=== PATIENT | male | born 1960 | race African-American/Black ===

== ENCOUNTER 2018-01-11 16:05 | Emergency (ER) | payer OTHER ==
[~2018-01-11] VITALS: Ht 25.4 cm; Wt 109.0 kg
[2018-01-11 16:42] VITALS: BP 143/91
== END 2018-01-11 16:45 | disposition home or self-care (01) | DRG 605 ==
LOC: ED 16:05
PROC: 0HQLXZZ Repair Left Lower Leg Skin, External Approach (ICD-10-PCS; principal; 2018-01-11)
DX: S81.812A Laceration without foreign body, left lower leg, initial encounter (principal); I10 Essential (primary) hypertension; E11.9 Type 2 diabetes mellitus without complications; E07.9 Disorder of thyroid, unspecified; W22.8XXA Striking against or struck by other objects, initial encounter; Y93.89 Activity, other specified

== ENCOUNTER 2018-01-21 08:04 | Emergency (ER) | payer OTHER ==
[~2018-01-21] VITALS: Ht 177.8 cm; Wt 106.8 kg
[2018-01-21] MEDS ORDERED: LISINOPRIL20 MG PO (08:14)
[2018-01-21] MEDS ORDERED: JANUVIA100 MG PO (08:14)
[2018-01-21] MEDS ORDERED: OMEPRAZOLE10 MG PO (08:15)
[2018-01-21] MEDS ORDERED: GABAPENTIN100 MG PO ×2 (08:15→08:16)
[2018-01-21 08:23] VITALS: BP 147/86
== END 2018-01-21 08:25 | disposition home or self-care (01) | DRG 950 ==
LOC: ED 08:04
DX: S81.812D Laceration without foreign body, left lower leg, subsequent encounter (principal)

== ENCOUNTER 2018-01-25 17:31 | Emergency (ER) | payer MEDICAID ==
[~2018-01-25] VITALS: Ht 177.8 cm; Wt 109.0 kg
[~2018-01-25 17:31] MED LIST: GABAPENTIN100 MG PO; JANUVIA100 MG PO; LISINOPRIL20 MG PO; OMEPRAZOLE10 MG PO
[2018-01-25] MEDS ORDERED: UNKNOWN CHOLESTEROL PO (17:43)
[2018-01-25 18:25] LABS: HEMOGLOBIN 14.2 g/dl (14.0-18.0); IMMATURE GRANULOCYTES 0.3 % (0.0-1.0); MEAN CELL VOLUME 86.2 fL CALC (80.0-100.0); MEAN CORPUSCULAR HGB 28.5 pG CALC (26.0-32.0); NEUT# 5.8 thou/uL (1.82-7.42); RED BLOOD COUNT 4.99 mill/uL (4.70-6.10); RED CELL DISTRI WIDTH 15.1 % (11.5-15.5)
[2018-01-25] MEDS ORDERED: KEFLEX500 M1 PO (18:42)
[2018-01-25 18:45] VITALS: BP 135/77
== END 2018-01-25 18:50 | disposition home or self-care (01) | DRG 556 ==
LOC: ED 17:31
DX: M25.572 Pain in left ankle and joints of left foot (principal); S91.012D Laceration without foreign body, left ankle, subsequent encounter; E11.9 Type 2 diabetes mellitus without complications; I10 Essential (primary) hypertension; X58.XXXD Exposure to other specified factors, subsequent encounter

== ENCOUNTER 2018-11-02 04:47 | Emergency (ER) | payer SELFPAY ==
[~2018-11-02] VITALS: Ht 177.8 cm; Wt 91.0 kg
[~2018-11-02 04:47] MED LIST changes: +ALBUTEROL4 M1 OR; +KEFLEX500 M1 PO; +MUCINEX600 MG OR; +NO HOME MEDS; +UNKNOWN CHOLESTEROL PO
[2018-11-02 05:42] LABS: HEMATOCRIT 47.1 % (39.0-50.0); HEMOGLOBIN 15.2 g/dl (14.0-18.0); IMMATURE GRANULOCYTES 0.4 % (0.0-5.0); MEAN CELL VOLUME 87.2 fL CALC (80.0-100.0); MEAN CORPUSCULAR HGB 28.1 pG CALC (26.0-32.0); MEAN CORPUSCULAR HGB CONC 32.3 g/L CALC (32.0-36.0); NEUT# 4.52 thou/uL (1.82-7.42); RED BLOOD COUNT 5.4 mill/uL (4.70-6.10); RED CELL DISTRI WIDTH 15.7 % (11.5-15.5)
[2018-11-02 06:08] LABS: ALBUMIN 5.1 g/dL (3.2-5.0); ALKALINE PHOSPHATASE 67 u/l (38-126); ANION GAP 19 (6-22 (CALC)); BILIRUBIN, TOTAL 0.6 mg/dL (0.0-1.4); BUN 14 mg/dL (9-20); BUN/CREATININE RATIO 15 (12-20 (CALC)); CARBON DIOXIDE 21 mmol/l (22-30); CHLORIDE 108 mmol/l (95-108); CREATININE 0.9 mg/dL (0.7-1.3); GFR > 60 ML/MIN (>=60 (CALC)); GFR FOR AFR.AMER. > 60 ML/MIN (>=60 (CALC)); POTASSIUM 4.3 mmol/l (3.5-5.1); SGOT/AST 74 u/l (17-59); SODIUM 143 mmol/l (137-146); TOTAL PROTEIN 8.5 g/dL (6.3-8.2)
[2018-11-02 06:17] LABS: ETHYL ALCOHOL 112 mg/dl (0-30)
[2018-11-02 06:37] LABS: URINE BILIRUBIN - DIPSTICK NEGATIVE (NEGATIVE); URINE BLOOD DIPSTICK TRACE-INTACT (NEGATIVE); URINE COLOR YELLOW; URINE GLUCOSE - DIPSTICK NEGATIVE (NEGATIVE); URINE KETONE TRACE mg/dL (NEGATIVE); URINE LEUK ESTERASE NEGATIVE (NEGATIVE); URINE NITRITE - DIPSTICK NEGATIVE (Negative); URINE PROTEIN - DIPSTICK TRACE mg/dL (NEG-TRACE); URINE SPECIFIC GRAVITY 1.025; URINE UROBILINOGEN - DIPSTICK 0.2 E.U./dL (0.2)
[2018-11-02 06:51] LABS: BARBITURATES NEGATIVE (NEGATIVE); COCAINE POSITIVE (NEGATIVE); METHADONE NEGATIVE (NEGATIVE); OXCYCODONE NEGATIVE (NEGATIVE); TETRAHYDROCANNABIONOL POSITIVE (NEGATIVE); TRICYLIC ANTIDEPRESSANTS NEGATIVE (NEGATIVE)
[2018-11-02 11:03] VITALS: BP 140/70
== END 2018-11-02 11:03 | DRG 885 ==
LOC: ED 04:47
PROVIDERS: Emergency Medicine
DX: F29 Unspecified psychosis not due to a substance or known physiological condition (principal); F10.10 Alcohol abuse, uncomplicated; F19.10 Other psychoactive substance abuse, uncomplicated; E11.9 Type 2 diabetes mellitus without complications; I10 Essential (primary) hypertension
CPT/HCPCS: J2060

== ENCOUNTER 2019-06-15 03:58 | Emergency (ER) | payer SELFPAY ==
[~2019-06-15] VITALS: Ht 177.8 cm; Wt 280.0 kg
[2019-06-15 04:51] VITALS: BP 206/75
== END 2019-06-15 04:10 | disposition left against medical advice (07) | DRG 951 ==
LOC: ED 03:58
DX: Z91.19 Patient's noncompliance with other medical treatment and regimen (principal)

== ENCOUNTER 2020-06-03 08:00 | Emergency (ER) | payer MEDICAID ==
[~2020-06-03] VITALS: Ht 177.8 cm; Wt 118.0 kg
[2020-06-03 09:06] LABS: IMMATURE GRANULOCYTES 0.7 % (0.0-5.0); MEAN CORPUSCULAR HGB 26.1 pG CALC (26.0-32.0); NEUT# 6.94 thou/uL (1.82-7.42); RED BLOOD COUNT 4.91 mill/uL (4.70-6.10)
[2020-06-03 09:31] LABS: HEMOGLOBIN 12.8 g/dl (14.0-18.0); MEAN CELL VOLUME 81.5 fL CALC (80.0-100.0)
[2020-06-03 09:34] LABS: D-DIMER 0.33 mg/L (0.19-0.60)
[2020-06-03 09:42] LABS: ACT PARTIAL THROMBO TIME 24.1 SECONDS (20.0-32.5); INTERNATIONAL NORMALIZED RATIO 1.1 RATIO (0.7-1.3); PROTHROMBIN TIME 10.7 SECONDS (9.0-12.5)
[2020-06-03 10:14] LABS: ALBUMIN 4.7 g/dL (3.2-5.0); ALKALINE PHOSPHATASE 76 u/l (38-126); ANION GAP 16 (6-22 (CALC)); BILIRUBIN, TOTAL 0.6 mg/dL (0.0-1.4); BUN 10 mg/dL (9-20); BUN/CREATININE RATIO 10 (12-20 (CALC)); C-REACTIVE PROTEIN 0.6 mg/dL (0-0.9); CARBON DIOXIDE 22 mmol/l (22-30); CHLORIDE 105 mmol/l (95-108); GFR > 60 ML/MIN (>=60 (CALC)); GFR FOR AFR.AMER. > 60 ML/MIN (>=60 (CALC)); POTASSIUM 3.9 mmol/l (3.5-5.1); SGOT/AST 76 u/l (17-59); SODIUM 139 mmol/l (137-146); TOTAL PROTEIN 8.5 g/dL (6.3-8.2)
[2020-06-03 11:47] LABS: URINE BILIRUBIN - DIPSTICK NEGATIVE (NEGATIVE); URINE BLOOD DIPSTICK NEGATIVE (NEGATIVE); URINE COLOR YELLOW; URINE GLUCOSE - DIPSTICK NEGATIVE (NEGATIVE); URINE KETONE NEGATIVE (NEGATIVE); URINE LEUK ESTERASE NEGATIVE (NEGATIVE); URINE NITRITE - DIPSTICK NEGATIVE (Negative); URINE PROTEIN - DIPSTICK NEGATIVE (NEG-TRACE); URINE SPECIFIC GRAVITY <=1.005; URINE UROBILINOGEN - DIPSTICK 0.2 E.U./dL (0.2)
[2020-06-03 13:04] VITALS: BP 135/80
== END 2020-06-03 13:05 | disposition designated cancer center or children's hospital (05) ==
LOC: ED 08:00
PROVIDERS: Student in an Organized Health Care Education/Training Program
DX: R07.9 Chest pain, unspecified (principal); R06.02 Shortness of breath; R19.7 Diarrhea, unspecified; R05 Cough; R11.2 Nausea with vomiting, unspecified; R42 Dizziness and giddiness; F32.9 Major depressive disorder, single episode, unspecified; R45.851 Suicidal ideations; I10 Essential (primary) hypertension; E11.9 Type 2 diabetes mellitus without complications; J44.9 Chronic obstructive pulmonary disease, unspecified; C34.90 Malignant neoplasm of unspecified part of unspecified bronchus or lung; Z79.84 Long term (current) use of oral hypoglycemic drugs; Z20.828 Contact with and (suspected) exposure to other viral communicable diseases
CPT/HCPCS: Q9967

== ENCOUNTER 2020-06-29 08:56 | Observation (INO) | payer MEDICAID ==
[~2020-06-29] VITALS: Ht 177.8 cm; Wt 118.0 kg
[2020-06-29] VITALS (9 sets, daily range): BP systolic 97–131; BP diastolic 45–79
[2020-06-29 09:28] LABS: HEMATOCRIT 43.3 % (39.0-50.0); HEMOGLOBIN 13.5 g/dl (14.0-18.0); IMMATURE GRANULOCYTES 0.5 % (0.0-5.0); MEAN CELL VOLUME 83.9 fL CALC (80.0-100.0); MEAN CORPUSCULAR HGB 26.2 pG CALC (26.0-32.0); MEAN CORPUSCULAR HGB CONC 31.2 g/dL CAL (32.0-36.0); NEUT# 4.36 thou/uL (1.82-7.42); RED BLOOD COUNT 5.16 mill/uL (4.70-6.10); RED CELL DISTRI WIDTH 17.9 % (11.5-15.5)
[2020-06-29 09:47] LABS: ALBUMIN 4.4 g/dL (3.2-5.0); ALKALINE PHOSPHATASE 69 u/l (38-126); ANION GAP 12 (6-22 (CALC)); BILIRUBIN, TOTAL 0.6 mg/dL (0.0-1.4); BUN 16 mg/dL (9-20); BUN/CREATININE RATIO 14 (12-20 (CALC)); CARBON DIOXIDE 26 mmol/l (22-30); CHLORIDE 106 mmol/l (95-108); CREATININE 1.1 mg/dL (0.7-1.3); ETHYL ALCOHOL 0 mg/dl (0-30); GFR > 60 ML/MIN (>=60 (CALC)); GFR FOR AFR.AMER. > 60 ML/MIN (>=60 (CALC)); POTASSIUM 4.5 mmol/l (3.5-5.1); SGOT/AST 40 u/l (17-59); SODIUM 140 mmol/l (137-146); TOTAL PROTEIN 7.5 g/dL (6.3-8.2)
[2020-06-30] VITALS: BP 110/53
[2020-06-30 02:00] VITALS: BP 106/59
[2020-06-30 04:00] VITALS: BP 82/62
[2020-06-30 05:56] LABS: HEMATOCRIT 40.4 % (39.0-50.0); HEMOGLOBIN 12.4 g/dl (14.0-18.0); MEAN CELL VOLUME 84.5 fL CALC (80.0-100.0); MEAN CORPUSCULAR HGB 25.9 pG CALC (26.0-32.0); MEAN CORPUSCULAR HGB CONC 30.7 g/dL CAL (32.0-36.0); RED BLOOD COUNT 4.78 mill/uL (4.70-6.10)
[2020-06-30 06:27] LABS: ANION GAP 11 (6-22 (CALC)); BUN 17 mg/dL (9-20); BUN/CREATININE RATIO 15 (12-20 (CALC)); CARBON DIOXIDE 25 mmol/l (22-30); CHLORIDE 107 mmol/l (95-108); CREATININE 1.1 mg/dL (0.7-1.3); GFR > 60 ML/MIN (>=60 (CALC)); GFR FOR AFR.AMER. > 60 ML/MIN (>=60 (CALC)); MAGNESIUM 2.2 mg/dL (1.6-2.3); POTASSIUM 4.5 mmol/l (3.5-5.1); SODIUM 139 mmol/l (137-146)
[2020-06-30 08:13] VITALS: BP 114/57
== END 2020-06-30 09:40 ==
LOC: ED 08:56 → ED-I 12:32 → ED 12:47 → ICU 12:48
PROVIDERS: Family Medicine; Nurse Practitioner; ADMIT Internal Medicine; ATTEND Internal Medicine
DX: T42.4X2A Poisoning by benzodiazepines, intentional self-harm, initial encounter (principal); T43.622A Poisoning by amphetamines, intentional self-harm, initial encounter; T43.642A Poisoning by ecstasy, intentional self-harm, initial encounter; R82.5 Elevated urine levels of drugs, medicaments and biological substances; I10 Essential (primary) hypertension; J44.9 Chronic obstructive pulmonary disease, unspecified; E11.40 Type 2 diabetes mellitus with diabetic neuropathy, unspecified; F41.9 Anxiety disorder, unspecified; F32.9 Major depressive disorder, single episode, unspecified; K21.9 Gastro-esophageal reflux disease without esophagitis; F17.200 Nicotine dependence, unspecified, uncomplicated; Z91.5 Personal history of self-harm; Z20.828 Contact with and (suspected) exposure to other viral communicable diseases
CPT/HCPCS: J1650

== ENCOUNTER 2021-04-03 09:06 | Emergency (ER) | payer OTHER ==
[2021-04-03 09:59] LABS: IMMATURE GRANULOCYTES 0.8 % (0.0-5.0); MEAN CELL VOLUME 85.7 fL CALC (80.0-100.0); MEAN CORPUSCULAR HGB 27.5 pG CALC (26.0-32.0); NEUT# 6.95 thou/uL (1.82-7.42); RED BLOOD COUNT 5.61 mill/uL (4.70-6.10); RED CELL DISTRI WIDTH 17.9 % (11.5-15.5)
[2021-04-03 10:09] LABS: HEMATOCRIT 48.1 % (39.0-50.0); HEMOGLOBIN 15.4 g/dl (14.0-18.0)
[2021-04-03 10:17] LABS: ALBUMIN 4.9 g/dL (3.2-5.0); ALKALINE PHOSPHATASE 65 u/l (38-126); ANION GAP 16 (6-22 (CALC)); BILIRUBIN, TOTAL 0.4 mg/dL (0.0-1.4); BUN 13 mg/dL (8-23); BUN/CREATININE RATIO 14 (12-20 (CALC)); CARBON DIOXIDE 27 mmol/l (22-30); CHLORIDE 103 mmol/l (95-108); ETHYL ALCOHOL 0 mg/dl (0-30); GFR > 60 ML/MIN (>=60 (CALC)); GFR FOR AFR.AMER. > 60 ML/MIN (>=60 (CALC)); POTASSIUM 3.9 mmol/l (3.5-5.1); SGOT/AST 45 u/l (19-48); SODIUM 142 mmol/l (137-146); TOTAL PROTEIN 8.8 g/dL (6.3-8.2)
[2021-04-03 11:00] VITALS: BP 154/90
== END 2021-04-03 11:40 | disposition short-term general hospital (02) ==
LOC: ED 09:06
PROVIDERS: Family Medicine
DX: R45.851 Suicidal ideations (principal); F31.9 Bipolar disorder, unspecified; F41.9 Anxiety disorder, unspecified; E11.9 Type 2 diabetes mellitus without complications; I10 Essential (primary) hypertension; T50.916A Underdosing of multiple unspecified drugs, medicaments and biological substances, initial encounter; F17.200 Nicotine dependence, unspecified, uncomplicated; Z91.128 Patient's intentional underdosing of medication regimen for other reason; Z20.822 Contact with and (suspected) exposure to COVID-19

== ENCOUNTER 2021-09-03 11:55 | Emergency (ER) | payer MEDICAID ==
[~2021-09-03] VITALS: Ht 177.8 cm; Wt 112.7 kg
[2021-09-03 13:24] LABS: HEMATOCRIT 44.8 % (39.0-50.0); HEMOGLOBIN 14.6 g/dl (14.0-18.0); IMMATURE GRANULOCYTES 0.3 % (0.0-5.0); MEAN CORPUSCULAR HGB 28.3 pG CALC (26.0-32.0); MEAN CORPUSCULAR HGB CONC 32.6 g/dL CAL (32.0-36.0); NEUT# 5.01 thou/uL (1.82-7.42); RED BLOOD COUNT 5.15 mill/uL (4.70-6.10)
[2021-09-03 13:39] LABS: ALBUMIN 4.5 g/dL (3.2-5.0); ALKALINE PHOSPHATASE 72 u/l (38-126); ANION GAP 13 (6-22 (CALC)); BILIRUBIN, TOTAL 0.8 mg/dL (0.0-1.4); BUN 20 mg/dL (8-23); BUN/CREATININE RATIO 17 (12-20 (CALC)); CARBON DIOXIDE 24 mmol/l (22-30); CHLORIDE 102 mmol/l (95-108); CREATININE 1.2 mg/dL (0.7-1.3); ETHYL ALCOHOL 0 mg/dl (0-30); GFR > 60 ML/MIN (>=60 (CALC)); GFR FOR AFR.AMER. > 60 ML/MIN (>=60 (CALC)); SGOT/AST 29 u/l (19-48); SODIUM 136 mmol/l (137-146); TOTAL PROTEIN 7.8 g/dL (6.3-8.2)
[2021-09-03 14:43] VITALS: BP 136/68
== END 2021-09-03 15:30 ==
LOC: ED 11:55
PROVIDERS: Family Medicine
DX: R45.851 Suicidal ideations (principal); F99 Mental disorder, not otherwise specified; F14.90 Cocaine use, unspecified, uncomplicated; I10 Essential (primary) hypertension; E11.9 Type 2 diabetes mellitus without complications; J44.9 Chronic obstructive pulmonary disease, unspecified; F17.210 Nicotine dependence, cigarettes, uncomplicated; T43.506A Underdosing of unspecified antipsychotics and neuroleptics, initial encounter; Z91.128 Patient's intentional underdosing of medication regimen for other reason; Z63.4 Disappearance and death of family member

== ENCOUNTER 2022-07-02 08:14 | Emergency (ER) | payer OTHER ==
[~2022-07-02] VITALS: Ht 177.8 cm; Wt 95.0 kg
[2022-07-02 09:13] LABS: GFR FOR AFR.AMER. > 60 ML/MIN (>=60 (CALC)); GFR OTHER RACES > 60 ML/MIN (>=60 (CALC))
[2022-07-02 09:16] LABS: HEMATOCRIT 42.3 % (39.0-50.0); HEMOGLOBIN 13.6 g/dl (14.0-18.0); IMMATURE GRANULOCYTES 0.2 % (0.0-5.0); MEAN CELL VOLUME 85.1 fL CALC (80.0-100.0); MEAN CORPUSCULAR HGB 27.4 pG CALC (26.0-32.0); MEAN CORPUSCULAR HGB CONC 32.2 g/dL CAL (32.0-36.0); NEUT# 2.84 thou/uL (1.82-7.42); RED BLOOD COUNT 4.97 mill/uL (4.70-6.10); RED CELL DISTRI WIDTH 15.9 % (11.5-15.5)
[2022-07-02 09:31] LABS: ALBUMIN 4.4 g/dL (3.2-5.0); ALKALINE PHOSPHATASE 73 u/l (38-126); ANION GAP 11 (6-22 (CALC)); BUN 16 mg/dL (8-23); BUN/CREATININE RATIO 15 (12-20 (CALC)); CARBON DIOXIDE 28 mmol/l (22-30); CHLORIDE 105 mmol/l (95-108); GFR FOR AFR.AMER. > 60 ML/MIN (>=60 (CALC)); GFR OTHER RACES > 60 ML/MIN (>=60 (CALC)); LIPASE 41 u/l (23-300); POTASSIUM 4.4 mmol/l (3.5-5.1); SGOT/AST 40 u/l (19-48); SODIUM 139 mmol/l (137-146); TOTAL PROTEIN 7.5 g/dL (6.3-8.2)
[2022-07-02 09:32] LABS: BILIRUBIN, TOTAL 0.4 mg/dL (0.0-1.4)
[2022-07-02 09:59] LABS: URINE BILIRUBIN - DIPSTICK NEGATIVE (NEGATIVE); URINE BLOOD DIPSTICK NEGATIVE (NEGATIVE); URINE COLOR YELLOW; URINE GLUCOSE - DIPSTICK NEGATIVE (NEGATIVE); URINE KETONE NEGATIVE (NEGATIVE); URINE LEUK ESTERASE NEGATIVE (NEGATIVE); URINE PH 7.5 (4.5-8.0); URINE PROTEIN - DIPSTICK NEGATIVE (NEG-TRACE); URINE UROBILINOGEN - DIPSTICK 0.2 E.U./dL (0.2)
[2022-07-02 10:00] LABS: URINE NITRITE - DIPSTICK NEGATIVE (Negative)
[2022-07-02] MEDS ORDERED: MIRALAX17 GM PO (10:05)
[2022-07-02] MEDS ORDERED: FLEXERIL5 M1 PO (10:05)
[2022-07-02 10:12] VITALS: BP 184/95
== END 2022-07-02 10:21 | DRG 392 ==
LOC: ED 08:14
PROVIDERS: Family Medicine
DX: R10.84 Generalized abdominal pain (principal); I10 Essential (primary) hypertension; E11.9 Type 2 diabetes mellitus without complications; J44.9 Chronic obstructive pulmonary disease, unspecified; F17.200 Nicotine dependence, unspecified, uncomplicated; Z98.890 Other specified postprocedural states
CPT/HCPCS: Q9967

== ENCOUNTER 2023-02-06 15:31 | Emergency (ER) | payer OTHER, MEDICAID ==
[~2023-02-06] VITALS: Ht 177.8 cm; Wt 109.0 kg
[~2023-02-06 15:31] MED LIST changes: +FLEXERIL5 M1 PO; +MIRALAX17 GM PO
[2023-02-06 15:41] VITALS: BP 116/76
[2023-02-06 16:01] VITALS: BP 104/56
[2023-02-06] MEDS ORDERED: CYCLOBENZAPRINE10 MG PO (17:43)
[2023-02-06 17:45] VITALS: BP 104/56
[2023-02-07] MEDS ORDERED: NAPROXEN500 MG PO (12:38)
== END 2023-02-06 17:50 | disposition home or self-care (01) | DRG 552 ==
LOC: ED 15:31
DX: S32.019A Unspecified fracture of first lumbar vertebra, initial encounter for closed fracture (principal); I10 Essential (primary) hypertension; E11.9 Type 2 diabetes mellitus without complications; J44.9 Chronic obstructive pulmonary disease, unspecified; E66.9 Obesity, unspecified; F17.210 Nicotine dependence, cigarettes, uncomplicated; V59.50XA Passenger in pick-up truck or van injured in collision with unspecified motor vehicles in traffic accident, initial encounter

== ENCOUNTER 2023-02-07 12:16 | Emergency (ER) | payer OTHER, MEDICAID ==
[~2023-02-07] VITALS: Ht 177.8 cm; Wt 108.0 kg
[~2023-02-07 12:16] MED LIST changes: +CYCLOBENZAPRINE10 MG PO
[2023-02-07 12:27] VITALS: BP 160/88
[2023-02-07 12:31] VITALS: BP 165/90
[2023-02-07] MEDS ORDERED: NAPROXEN500 MG PO (12:38)
[2023-02-07 12:46] VITALS: BP 160/93
[2023-02-07 13:12] VITALS: BP 160/93
== END 2023-02-07 13:14 | disposition home or self-care (01) | DRG 552 ==
LOC: ED 12:16
DX: S32.009A Unspecified fracture of unspecified lumbar vertebra, initial encounter for closed fracture (principal); V89.2XXA Person injured in unspecified motor-vehicle accident, traffic, initial encounter; I10 Essential (primary) hypertension; E11.9 Type 2 diabetes mellitus without complications; J44.9 Chronic obstructive pulmonary disease, unspecified; F17.200 Nicotine dependence, unspecified, uncomplicated; T50.996A Underdosing of other drugs, medicaments and biological substances, initial encounter; Z91.128 Patient's intentional underdosing of medication regimen for other reason

== ENCOUNTER 2023-02-14 12:35 | Observation (INO) | payer MEDICAID ==
[2023-02-14] VITALS (16 sets, daily range): BP systolic 124–173; BP diastolic 69–99
[~2023-02-14] VITALS: Ht 177.8 cm; Wt 110.2 kg
[~2023-02-14 12:35] MED LIST changes: +NAPROXEN500 MG PO
--- NOTE | 2023-02-14 12:38 | NUR ---
RADHA TO ROOM 13 WITH PRIMARY NURSE
[2023-02-14 12:56] LABS: BASO% 0.3 % (0-3); EOS% 0.4 % (0-8); HEMATOCRIT 41.5 % (39.0-50.0); HEMOGLOBIN 13.3 g/dl (14.0-18.0); IMMATURE GRANULOCYTES 0.5 % (0.0-5.0); LYMPH% 28.4 % (15-41); MEAN CELL VOLUME 85.4 fL CALC (80.0-100.0); MEAN CORPUSCULAR HGB 27.4 pG CALC (26.0-32.0); MONO% 8.7 % (2-13); NEUT# 4.58 thou/uL (1.82-7.42); NEUT% 61.7 % (42-76); RED BLOOD COUNT 4.86 mill/uL (4.70-6.10); RED CELL DISTRI WIDTH 15.6 % (11.5-15.5)
[2023-02-14 13:13] LABS: ALBUMIN 4.8 g/dL (3.2-5.0); ALKALINE PHOSPHATASE 66 u/l (38-126); ANION GAP 17 (6-22 (CALC)); BILIRUBIN, TOTAL 0.3 mg/dL (0.2-1.3); BUN 11 mg/dL (8-23); BUN/CREATININE RATIO 12 (12-20 (CALC)); CHLORIDE 106 mmol/l (95-108); CREATININE 0.9 mg/dL (0.7-1.3); GFR FOR AFR.AMER. > 60 ML/MIN (>=60 (CALC)); GFR OTHER RACES > 60 ML/MIN (>=60 (CALC)); LIPASE 53 u/l (23-300); SGOT/AST 30 u/l (19-48); SODIUM 141 mmol/l (137-146); TOTAL PROTEIN 7.6 g/dL (6.3-8.2)
--- NOTE | 2023-02-14 13:15 | NUR ---
FIRST SUB LING NITRATE GIVEN FOR PAIN RATED 8/10 ON PAIN SCALE. AFTER 5 MIN HAS PAST PATIENT STATES PAIN IS THE SAME, UNCHANGED. SECOND DOSE OF NTG GIVEN PAIN RATED 8/10. PATIENT IS REQUESTING MORE MORPHINE AFTER RECIEVING 2MG IVP. 5 MIN PASSED AND SLIGHT IMPROVEMENT IN BP AND PATIENT STATES PAIN IS NOW A 6/10 ON PAIN SCALE. THIRD AND FINAL SUB NTG GIVEN.
[2023-02-14 13:16] LABS: CARBON DIOXIDE 22 mmol/l (22-30)
[2023-02-14 13:30] LABS: URINE BILIRUBIN - DIPSTICK NEGATIVE (NEGATIVE); URINE BLOOD DIPSTICK NEGATIVE (NEGATIVE); URINE COLOR YELLOW; URINE GLUCOSE - DIPSTICK NEGATIVE (NEGATIVE); URINE KETONE NEGATIVE (NEGATIVE); URINE LEUK ESTERASE NEGATIVE (NEGATIVE); URINE PROTEIN - DIPSTICK TRACE mg/dL (NEG-TRACE); URINE SPECIFIC GRAVITY 1.015; URINE UROBILINOGEN - DIPSTICK 0.2 E.U./dL (0.2)
[2023-02-14 13:32] LABS: URINE NITRITE - DIPSTICK NEGATIVE (Negative)
[2023-02-14] MEDS ORDERED: JANUVIA100 MG PO (14:35)
[2023-02-14] MEDS ORDERED: LOSARTAN POTAS100 MG PO (14:36)
[2023-02-14] MEDS ORDERED: HUMALOG KW100 UNIT/M SC (14:37)
[2023-02-14] MEDS ORDERED: FLEXERIL5 M1 PO (14:40)
[2023-02-14] MEDS ORDERED: DIVALPROEX SOD500 MG PO (14:41)
[2023-02-14] MEDS ORDERED: VENTOLIN HFA108 MCG (14:41)
[2023-02-14] MEDS ORDERED: ALPRAZOLAM1 MG PO (14:42)
--- NOTE | 2023-02-14 14:45 | NUR ---
PATIENT RESTING. NO DISTRESS. ADMISSION PENDING
--- NOTE | 2023-02-14 15:00 | NUR ---
IV LOPRESSOR GIVEN WITH GOOD RESULTS. BP 124/68, HR80 . ATTEMPTED TO CALL REPORT TO THE FLOOR AND NURSE UNAVAILABLE.
--- NOTE | 2023-02-14 15:58 | NUR ---
VERBAL REPORT GIVEN TO PORFIRIO MONTILLA . PATIENT TAKEN TO THE FLOOR AT THIS TIME.
--- NOTE | 2023-02-14 16:19 | NUR ---
PTS WEIGHT WAS 118.4
--- NOTE | 2023-02-14 17:03 | NUR ---
REPORT RECEIVED FROM MIMA IN ED. PT ARRIVED ON UNIT @ 1605 TRANSPORTED VIA STRETCHER AND AMBULATED TO BED. ALERT AND ORIENTED X 4, C/O MILD PAIN @ 2/10 TO CHEST AND STATED IT WAS WORSE EARLIER BUT MUCH BETTER NOW. TELE MONITOR IN PLACE. ORIENTED TO ROOM AND CALL ANDERSON. APPEARS VERY ANXIOUS AND STATED HE HAS SOME PSYCHE CONDITIONS AND GOES TO A RESTING FACILITY IN [place] AT TIMES WHEN HE IS STRESSED, HE ALSO STATES HE HAS SOME COURT CASES AND HE IS REALLY STRESSED ABOUT THEM. HE IS ANXIOIUS TO KNOW WHEN HE WILL BE DISCHARGED AND INFORMED MD WILL BE HERE IN AM TO ASSESS AND DISCUSS D/C PLANS. HE REPORTED HE USES MARIJUANA BUT NOT KNOWINGLY USES COCAINE AND SOMEONE MUST HAVE LACED HIS MARIJUANA WATH THAT SUBSTANCE.
--- NOTE | 2023-02-14 18:43 | NUR ---
PT EATING [employer] MEAL AT THIS TIME, EDUCATED ON DIABETIC DIET AND INFORMED HE WILL NOT BED SERVED MEALS OF THE KIND HE IS NOW COMDUMING AND STATES HE KNOWS BUT HE JUST COULD NOT EAT THE MEAL WE SERVED HIM HERE.
--- NOTE | 2023-02-14 19:45 | NUR ---
RECEIVED REPORT FROM ROLDAN LYONS. PT SITTING ON BED, LOW FOWLERS; A&O X3. EVEN AND UNLABORED RESPIRATIONS. TELEMETERY IN PLACE WITH LAST READING [id number]. IV SITE FLUSHED: #20 G, HEALTHY AND PATENT. ACTIVE BOWEL SOUNDS X4 QUADRANTS. SAFETY PRECAUTIONS IN PLACE WITH CALL LIGHT IN REACH.
--- NOTE | 2023-02-15 | NUR ---
PT RESTING ON BED WITH EYES CLOSED. NO DISTRESS OR PAIN NOTED. NO VOICED NEEDS AT THIS TIME. SAFETY PRECAUTIONS IN PLACE WITH CALL LIGHT IN REACH.
[2023-02-15 00:28] VITALS: BP 119/67
[2023-02-15 01:59] LABS: CHOLESTEROL HDL RATIO 6.5 (<4.4 (CALC)); MAGNESIUM 2.1 mg/dL (1.6-2.3)
[2023-02-15 04:09] VITALS: BP 125/56
--- NOTE | 2023-02-15 04:10 | NUR ---
PT RESTING ON BED WITH EYES CLOSED. NO DISTRESS NOTED. IV SITE HEALTHY AND PATENT. VS COMPLETED. PT DENIES PAIN AT THIS TIME. NO VOICED NEEDS AT THE MOMENT. SAFETY PRECAUTIONS IN PLACE WITH CALL LIGHT IN REACH.
[2023-02-15 07:06] VITALS: BP 160/103
--- NOTE | 2023-02-15 08:00 | NUR ---
PT SITTING ON SIDE OF BED EATING BREAKFAST; ALERT AND OREINTED X 3. PT HAS NO C/O PAIN AT THIS TIME. TELE ON WITH ALL LEADS ATTACHED. PT IV SITE # 20 TO LAC CLEAN AND INTACT. LUNGS CLEAR AND BS ACTIVE. PT AMBULATES TO BATHROOM FOR TOILETING NEEDS. PT HAS CALL LIGHT WITHIN REACH AND ALL SAFETY MEASURES IN PLACE AT THIS TIME.
[2023-02-15 08:18] VITALS: BP 160/103
[2023-02-15] MEDS ORDERED: PERCOCET1 TA4 PO (10:08)
[2023-02-15] MEDS ORDERED: JANUVIA100 MG PO (10:08)
[2023-02-15] MEDS ORDERED: VENTOLIN HFA108 MCG IN (10:08)
[2023-02-15] MEDS ORDERED: ALPRAZOLAM1 MG PO (10:08)
[2023-02-15] MEDS ORDERED: LOSARTAN POTAS100 MG PO (10:08)
[2023-02-15] MEDS ORDERED: EFFEXOR XR75 MG/CAP PO ×2 (10:09→10:11)
[2023-02-15] MEDS ORDERED: CARDIZEM CD120 MG PO ×2 (10:09→10:11)
[2023-02-15] MEDS ORDERED: LEVEMIR100 UNIT SC (10:10)
--- NOTE | 2023-02-15 11:10 | NUR ---
Discharge instructions given. Patient verbalizes understanding of same. Discharged in stable condition via Wheelchair to Home with staff. All belongings sent with pt.
== END 2023-02-15 11:00 | disposition home or self-care (01) ==
LOC: ED 12:35 → ED-I 13:46 → ED 13:46 → MS2 14:19
PROVIDERS: Nurse Practitioner; ADMIT Internal Medicine; ATTEND Internal Medicine
DX: R07.9 Chest pain, unspecified (principal); F14.90 Cocaine use, unspecified, uncomplicated; I10 Essential (primary) hypertension; E11.40 Type 2 diabetes mellitus with diabetic neuropathy, unspecified; J44.9 Chronic obstructive pulmonary disease, unspecified; I25.10 Atherosclerotic heart disease of native coronary artery without angina pectoris; K21.9 Gastro-esophageal reflux disease without esophagitis; F41.9 Anxiety disorder, unspecified; F32.A Depression, unspecified; F17.210 Nicotine dependence, cigarettes, uncomplicated; T46.5X6A Underdosing of other antihypertensive drugs, initial encounter; Z91.128 Patient's intentional underdosing of medication regimen for other reason; Z91.51 Personal history of suicidal behavior
CPT/HCPCS: G0378; J1650

== ENCOUNTER 2024-03-22 18:29 | Emergency (ER) | payer OTHER ==
[~2024-03-22] VITALS: Ht 177.8 cm; Wt 117.9 kg
[2024-03-22] VITALS (18 sets, daily range): BP systolic 99–154; BP diastolic 48–85
[~2024-03-22 18:29] MED LIST changes: +ALPRAZOLAM1 MG PO; +CARDIZEM CD120 MG PO; +DIVALPROEX SOD500 MG PO; +EFFEXOR XR75 MG/CAP PO; +HUMALOG KW100 UNIT/M SC; +LEVEMIR100 UNIT SC; +LOSARTAN POTAS100 MG PO; +PERCOCET1 TA4 PO; +VENTOLIN HFA108 MCG; +VENTOLIN HFA108 MCG IN
[2024-03-22 20:00] LABS: URINE BILIRUBIN - DIPSTICK Negative (NEGATIVE); URINE BLOOD DIPSTICK Trace-intact (NEGATIVE); URINE GLUCOSE - DIPSTICK Negative (NEGATIVE); URINE KETONE Trace mg/dL (NEGATIVE); URINE LEUK ESTERASE Negative (NEGATIVE); URINE NITRITE - DIPSTICK Negative (Negative); URINE PH 5.5 (4.5-8.0); URINE PROTEIN - DIPSTICK Trace mg/dL (NEG-TRACE); URINE UROBILINOGEN - DIPSTICK 0.2 E.U./dL (0.2)
[2024-03-22 20:00] LABS: BASO% 0.2 % (0-3); EOS% 0.3 % (0-8); HEMATOCRIT 43.1 % (39.0-50.0); IMMATURE GRANULOCYTES 0.2 % (0.0-5.0); MEAN CELL VOLUME 83.7 fL CALC (80.0-100.0); MEAN CORPUSCULAR HGB 27.2 pG CALC (26.0-32.0); MEAN CORPUSCULAR HGB CONC 32.5 g/dL CAL (32.0-36.0); NEUT# 6.47 thou/uL (1.82-7.42); NEUT% 66.3 % (42-76); RED BLOOD COUNT 5.15 mill/uL (4.70-6.10); RED CELL DISTRI WIDTH 16.3 % (11.5-15.5)
[2024-03-22 20:04] LABS: URINE COLOR Yellow
[2024-03-22] MEDS ORDERED: MORPHINE SULFATE 4 MG/ML VIAL IV ONE (20:10)
[2024-03-22] MEDS ORDERED: ONDANSETRON HCl 4 MG/2 ML SDV IV ONE (20:10)
[2024-03-22 20:16] LABS: TOTAL PROTEIN 8.4 g/dL (6.3-8.2)
[2024-03-22 20:17] LABS: BILIRUBIN, TOTAL 0.9 mg/dL (0.2-1.3)
[2024-03-22] MEDS ORDERED: LIDOCAINE 4 % PATCH TD ONE (23:45)
[2024-03-22] MEDS ORDERED: LIDODERM5 % EX (23:50)
[2024-03-22] MEDS ORDERED: CELEBREX200 M1 PO (23:50)
[2024-03-22] MEDS ORDERED: DEXAMETHASON6 MG PO (23:50)
[2024-03-22] MEDS ORDERED: FLEXERIL5 M1 PO (23:50)
[2024-03-22] MEDS ORDERED: DEXAMETHASONE 2 MG/TAB TAB PO ONE (23:55)
[2024-03-23 00:01] VITALS: BP 145/80
== END 2024-03-23 00:14 | disposition home or self-care (01) ==
LOC: ED 18:29
PROVIDERS: Emergency Medicine
DX: M54.50 Low back pain, unspecified (principal); I10 Essential (primary) hypertension; J44.9 Chronic obstructive pulmonary disease, unspecified; E11.40 Type 2 diabetes mellitus with diabetic neuropathy, unspecified; F41.9 Anxiety disorder, unspecified; F31.9 Bipolar disorder, unspecified; Z79.4 Long term (current) use of insulin; Z72.0 Tobacco use
CPT/HCPCS: Q9967

== ENCOUNTER 2024-03-24 17:08 | Emergency (ER) | payer OTHER ==
[~2024-03-24] VITALS: Ht 177.8 cm; Wt 117.9 kg
[2024-03-24] VITALS (15 sets, daily range): BP systolic 101–161; BP diastolic 69–96
[~2024-03-24 17:08] MED LIST changes: +CELEBREX200 M1 PO; +DEXAMETHASON6 MG PO; +LIDODERM5 % EX
[2024-03-24] MEDS ORDERED: Polyethylene Glycol 3350 17 GM/PKT PO ONE (18:50)
[2024-03-24] MEDS ORDERED: MAGNESIUM HYDROXIDE 30 ML UDC PO PRN (18:50)
[2024-03-24] MEDS ORDERED: LACTULOSE 20 GM/30 ML UDC PO ONE (18:50)
[2024-03-24 19:01] LABS: BASO% 0.4 % (0-3); EOS% 0.6 % (0-8); HEMATOCRIT 44.2 % (39.0-50.0); HEMOGLOBIN 14.4 g/dl (14.0-18.0); IMMATURE GRANULOCYTES 0.3 % (0.0-5.0); MEAN CELL VOLUME 84.2 fL CALC (80.0-100.0); MEAN CORPUSCULAR HGB 27.4 pG CALC (26.0-32.0); MEAN CORPUSCULAR HGB CONC 32.6 g/dL CAL (32.0-36.0); MONO% 8.5 % (2-13); NEUT# 3.93 thou/uL (1.82-7.42); NEUT% 56.2 % (42-76); RED BLOOD COUNT 5.25 mill/uL (4.70-6.10); RED CELL DISTRI WIDTH 16.7 % (11.5-15.5); URINE BILIRUBIN - DIPSTICK Negative (NEGATIVE); URINE BLOOD DIPSTICK Negative (NEGATIVE); URINE GLUCOSE - DIPSTICK Negative (NEGATIVE); URINE KETONE Trace mg/dL (NEGATIVE); URINE LEUK ESTERASE Negative (NEGATIVE); URINE NITRITE - DIPSTICK Negative (Negative); URINE PROTEIN - DIPSTICK Trace mg/dL (NEG-TRACE); URINE SPECIFIC GRAVITY 1.025; URINE UROBILINOGEN - DIPSTICK 0.2 E.U./dL (0.2)
[2024-03-24 19:02] LABS: URINE COLOR Yellow
[2024-03-24 19:21] LABS: ALBUMIN 4.3 g/dL (3.2-5.0); POTASSIUM 4.6 mmol/l (3.5-5.1); TOTAL PROTEIN 7.3 g/dL (6.3-8.2)
[2024-03-24 19:23] LABS: BILIRUBIN, TOTAL 0.4 mg/dL (0.2-1.3)
[2024-03-24] MEDS ORDERED: DICYCLOMINE HCL 20 MG/2 ML VIAL IM ONE (20:55)
[2024-03-24] MEDS ORDERED: KETOROLAC TROMETHAMINE 30 MG/ML SDV IM ONE (20:55)
[2024-03-25] MEDS ORDERED: GOLYTELY PO (00:42)
[2024-03-25 01:21] VITALS: BP 157/90
== END 2024-03-25 01:21 | disposition home or self-care (01) ==
LOC: ED 17:08
PROVIDERS: Nurse Practitioner
DX: R10.30 Lower abdominal pain, unspecified (principal); I10 Essential (primary) hypertension; E11.40 Type 2 diabetes mellitus with diabetic neuropathy, unspecified; J44.9 Chronic obstructive pulmonary disease, unspecified; F41.9 Anxiety disorder, unspecified; F31.9 Bipolar disorder, unspecified; F17.210 Nicotine dependence, cigarettes, uncomplicated; Z79.4 Long term (current) use of insulin
CPT/HCPCS: Q9967

== ENCOUNTER 2024-04-02 20:09 | Emergency (ER) | payer OTHER ==
[~2024-04-02] VITALS: Ht 177.8 cm; Wt 111.0 kg
[~2024-04-02 20:09] MED LIST changes: +GOLYTELY PO
[2024-04-02 20:32] VITALS: BP 142/95
[2024-04-02] MEDS ORDERED: HALOPERIDOL 5 MG TAB PO ONE (20:55)
[2024-04-02] MEDS ORDERED: LORazepam 1 MG/TAB PO ONE (20:55)
[2024-04-02 21:14] LABS: BASO% 0.2 % (0-3); EOS% 0.1 % (0-8); HEMATOCRIT 44.5 % (39.0-50.0); HEMOGLOBIN 14.3 g/dl (14.0-18.0); IMMATURE GRANULOCYTES 0.5 % (0.0-5.0); LYMPH% 24.3 % (15-41); MEAN CELL VOLUME 84.1 fL CALC (80.0-100.0); MEAN CORPUSCULAR HGB CONC 32.1 g/dL CAL (32.0-36.0); MONO% 7.4 % (2-13); NEUT# 6.45 thou/uL (1.82-7.42); NEUT% 67.5 % (42-76); RED BLOOD COUNT 5.29 mill/uL (4.70-6.10); RED CELL DISTRI WIDTH 16.1 % (11.5-15.5)
[2024-04-02 21:31] LABS: ALBUMIN 4.7 g/dL (3.2-5.0); BILIRUBIN, TOTAL 0.5 mg/dL (0.2-1.3); CREATININE 1.1 mg/dL (0.7-1.3); MAGNESIUM 1.9 mg/dL (1.6-2.3); TOTAL PROTEIN 7.9 g/dL (6.3-8.2)
[2024-04-02 21:54] LABS: URINE BILIRUBIN - DIPSTICK Negative (NEGATIVE); URINE BLOOD DIPSTICK Negative (NEGATIVE); URINE GLUCOSE - DIPSTICK Negative (NEGATIVE); URINE KETONE Negative (NEGATIVE); URINE LEUK ESTERASE Negative (NEGATIVE); URINE NITRITE - DIPSTICK Negative (Negative); URINE PROTEIN - DIPSTICK Negative (NEG-TRACE); URINE SPECIFIC GRAVITY <=1.005; URINE UROBILINOGEN - DIPSTICK 0.2 E.U./dL (0.2)
[2024-04-02 22:00] LABS: URINE COLOR Yellow
[2024-04-02 22:01] LABS: TSH, 3RD GENERATION 3.69 uIU/mL (0.47 - 4.68)
[2024-04-02 23:51] VITALS: BP 135/71
[2024-04-03 00:29] VITALS: BP 135/71
== END 2024-04-03 00:14 | disposition designated cancer center or children's hospital (05) ==
LOC: ED 20:09
PROVIDERS: Internal Medicine
DX: R45.851 Suicidal ideations (principal); F14.10 Cocaine abuse, uncomplicated; F12.10 Cannabis abuse, uncomplicated; I10 Essential (primary) hypertension; E11.40 Type 2 diabetes mellitus with diabetic neuropathy, unspecified; J44.9 Chronic obstructive pulmonary disease, unspecified; F41.9 Anxiety disorder, unspecified; F31.9 Bipolar disorder, unspecified; F17.200 Nicotine dependence, unspecified, uncomplicated; Z79.4 Long term (current) use of insulin; Z20.822 Contact with and (suspected) exposure to COVID-19

== ENCOUNTER 2024-04-27 09:30 | Observation (INO) | payer OTHER ==
[2024-04-27] VITALS (12 sets, daily range): BP systolic 152–191; BP diastolic 79–139
[~2024-04-27] VITALS: Ht 177.8 cm; Wt 113.0 kg
[2024-04-27] MEDS ORDERED: ASPIRIN 81 MG/TAB PO ONE (09:35)
[2024-04-27] MEDS ORDERED: NITROGLYCERIN 0.4 MG/TAB SL ONE (09:45)
[2024-04-27 10:07] LABS: BASO% 0.3 % (0-3); EOS% 0.5 % (0-8); HEMATOCRIT 40.4 % (39.0-50.0); LYMPH% 23.9 % (15-41); MEAN CELL VOLUME 83.1 fL CALC (80.0-100.0); MEAN CORPUSCULAR HGB 26.7 pG CALC (26.0-32.0); MEAN CORPUSCULAR HGB CONC 32.2 g/dL CAL (32.0-36.0); MONO% 5.2 % (2-13); NEUT# 5.36 thou/uL (1.82-7.42); NEUT% 69.1 % (42-76); RED BLOOD COUNT 4.86 mill/uL (4.70-6.10); RED CELL DISTRI WIDTH 16.9 % (11.5-15.5)
[2024-04-27 10:22] LABS: ALBUMIN 4.8 g/dL (3.2-5.0); ALKALINE PHOSPHATASE 75 u/l (38-126); ANION GAP 12 (6-22 (CALC)); BILIRUBIN, TOTAL 0.7 mg/dL (0.2-1.3); BUN 14 mg/dL (8-23); BUN/CREATININE RATIO 12 (12-20 (CALC)); CARBON DIOXIDE 22 mmol/l (22-30); CHLORIDE 109 mmol/l (95-108); CREATININE 1.2 mg/dL (0.7-1.3); ESTIMATED GFR 68 ML/MIN (>=90 (CALC)); POTASSIUM 4.2 mmol/l (3.5-5.1); SGOT/AST 34 u/l (19-48); SODIUM 139 mmol/l (137-146); TOTAL PROTEIN 8.6 g/dL (6.3-8.2)
[2024-04-27] MEDS ORDERED: MAGNESIUM HYDROXIDE 30 ML UDC PO PRN (13:50)
[2024-04-27] MEDS ORDERED: SODIUM CHLORIDE 0.9% 1,000 ML IV PRN (13:50)
[2024-04-27] MEDS ORDERED: ACETAMINOPHEN 325 MG/TAB PO PRN (13:50)
[2024-04-27] MEDS ORDERED: NITROGLYCERIN 0.4 MG/TAB SL PRN (13:50)
[2024-04-27] MEDS ORDERED: MORPHINE SULFATE 4 MG/ML VIAL IV PRN (13:50)
[2024-04-27] MEDS ORDERED: hydrALAZINE HCL 20 MG/ML VIAL(1 ML) IV PRN (13:55)
[2024-04-27] MEDS ORDERED: INSULIN LISPRO 100 UNITS/ML ML SC SCH (17:00)
[2024-04-27] MEDS ORDERED: LEVOTHYROXIN50 MCG PO (19:32)
[2024-04-27] MEDS ORDERED: METOPROLOL TARTRATE 25 MG/TAB PO SCH (21:00)
[2024-04-27] MEDS ORDERED: ATORVASTATIN CALCIUM 40 MG/TAB PO SCH (21:00)
[2024-04-27] MEDS ORDERED: ENOXAPARIN SODIUM 40 MG/0.4 ML SYR SC SCH (21:00)
[2024-04-28] VITALS (7 sets, daily range): BP systolic 120–151; BP diastolic 48–82
[2024-04-28 05:53] LABS: BASO% 0.5 % (0-3); EOS% 0.9 % (0-8); HEMATOCRIT 41.6 % (39.0-50.0); HEMOGLOBIN 13.4 g/dl (14.0-18.0); IMMATURE GRANULOCYTES 0.8 % (0.0-5.0); LYMPH% 30.6 % (15-41); MEAN CELL VOLUME 83.4 fL CALC (80.0-100.0); MEAN CORPUSCULAR HGB 26.9 pG CALC (26.0-32.0); MEAN CORPUSCULAR HGB CONC 32.2 g/dL CAL (32.0-36.0); MONO% 6.8 % (2-13); NEUT# 4.64 thou/uL (1.82-7.42); NEUT% 60.4 % (42-76); RED BLOOD COUNT 4.99 mill/uL (4.70-6.10); RED CELL DISTRI WIDTH 16.9 % (11.5-15.5)
[2024-04-28] MEDS ORDERED: LEVOTHYROXINE SODIUM 50 MCG/TAB PO SCH (06:00)
[2024-04-28 06:19] LABS: CHOLESTEROL HDL RATIO 6.1 (<4.4 (CALC)); CREATININE 1.1 mg/dL (0.7-1.3); POTASSIUM 4.3 mmol/l (3.5-5.1)
[2024-04-28 06:31] LABS: ALBUMIN 3.7 g/dL (3.2-5.0); BILIRUBIN, TOTAL 0.3 mg/dL (0.2-1.3); TOTAL PROTEIN 6.5 g/dL (6.3-8.2)
[2024-04-28] MEDS ORDERED: LOSARTAN Potassium 50 MG/TAB PO SCH (09:00)
[2024-04-28] MEDS ORDERED: FUROSEMIDE 40 MG/4 ML SDV IV SCH (09:00)
[2024-04-28] MEDS ORDERED: ASPIRIN 81 MG/TAB PO SCH (09:00)
[2024-04-28] MEDS ORDERED: ZITHROMAX500 MG PO (10:35)
[2024-04-28] MEDS ORDERED: Polyethylene Glycol 3350 17 GM/PKT PO SCH (11:00)
[2024-04-28] MEDS ORDERED: AZITHROMYCIN 250 MG/TAB PO SCH (11:00)
[2024-04-28] MEDS ORDERED: LACTULOSE 20 GM/30 ML UDC PO SCH (11:00)
== END 2024-04-28 14:13 | disposition home or self-care (01) ==
LOC: ED 09:30 → ED-I 11:50 → ED 12:26 → MS2 12:27
PROVIDERS: Family Medicine; ADMIT Student in an Organized Health Care Education/Training Program; ATTEND Student in an Organized Health Care Education/Training Program
DX: T40.5X1A Poisoning by cocaine, accidental (unintentional), initial encounter (principal); R07.9 Chest pain, unspecified; F14.20 Cocaine dependence, uncomplicated; I10 Essential (primary) hypertension; E11.40 Type 2 diabetes mellitus with diabetic neuropathy, unspecified; J44.9 Chronic obstructive pulmonary disease, unspecified; F41.9 Anxiety disorder, unspecified; F32.A Depression, unspecified; F20.9 Schizophrenia, unspecified; F17.210 Nicotine dependence, cigarettes, uncomplicated; Z79.4 Long term (current) use of insulin; Z91.51 Personal history of suicidal behavior
CPT/HCPCS: G0378; J1650

== ENCOUNTER 2024-05-11 12:33 | Observation (INO) | payer OTHER ==
[~2024-05-11] VITALS: Ht 177.8 cm; Wt 108.8 kg
[2024-05-11] VITALS (13 sets, daily range): BP systolic 124–178; BP diastolic 61–98
[~2024-05-11 12:33] MED LIST changes: +LEVOTHYROXIN50 MCG PO; +ZITHROMAX500 MG PO
[2024-05-11] MEDS ORDERED: ASPIRIN 81 MG/TAB PO ONE (13:00)
[2024-05-11 13:22] LABS: BASO% 0.3 % (0-3); EOS% 0.2 % (0-8); HEMATOCRIT 43.1 % (39.0-50.0); HEMOGLOBIN 13.7 g/dl (14.0-18.0); IMMATURE GRANULOCYTES 0.3 % (0.0-5.0); LYMPH% 21.2 % (15-41); MEAN CELL VOLUME 82.4 fL CALC (80.0-100.0); MEAN CORPUSCULAR HGB 26.2 pG CALC (26.0-32.0); MEAN CORPUSCULAR HGB CONC 31.8 g/dL CAL (32.0-36.0); MONO% 6.3 % (2-13); NEUT# 8.35 thou/uL (1.82-7.42); NEUT% 71.7 % (42-76); RED BLOOD COUNT 5.23 mill/uL (4.70-6.10); RED CELL DISTRI WIDTH 17.2 % (11.5-15.5)
[2024-05-11] MEDS ORDERED: LORazepam 2 MG/ML IV ONE (13:30)
[2024-05-11 13:40] LABS: ALKALINE PHOSPHATASE 76 u/l (38-126); ANION GAP 16 (6-22 (CALC)); BUN 23 mg/dL (8-23); BUN/CREATININE RATIO 21 (12-20 (CALC)); CARBON DIOXIDE 20 mmol/l (22-30); CHLORIDE 110 mmol/l (95-108); CREATININE 1.1 mg/dL (0.7-1.3); ESTIMATED GFR 75 ML/MIN (>=90 (CALC)); ETHYL ALCOHOL 18 mg/dl (0-30); LIPASE 54 u/l (23-300); POTASSIUM 4.6 mmol/l (3.5-5.1); SGOT/AST 33 u/l (19-48); SODIUM 141 mmol/l (137-146)
[2024-05-11 13:48] LABS: ALBUMIN 5.1 g/dL (3.2-5.0); BILIRUBIN, TOTAL 0.5 mg/dL (0.2-1.3); TOTAL PROTEIN 8.7 g/dL (6.3-8.2)
[2024-05-11 14:10] LABS: TSH, 3RD GENERATION 2.11 uIU/mL (0.47 - 4.68)
[2024-05-11] MEDS ORDERED: ACETAMINOPHEN 325 MG/TAB PO PRN (15:05)
[2024-05-11] MEDS ORDERED: Zaleplon 5 MG/CAP PO PRN (15:05)
[2024-05-11] MEDS ORDERED: SODIUM CHLORIDE 0.9% 1,000 ML IV PRN (15:05)
[2024-05-11] MEDS ORDERED: MAGNESIUM HYDROXIDE 30 ML UDC PO PRN (15:05)
[2024-05-11] MEDS ORDERED: ENOXAPARIN SODIUM 40 MG/0.4 ML SYR SC SCH (21:00)
[2024-05-12 06:05] LABS: CHOLESTEROL HDL RATIO 5.6 (<4.4 (CALC)); MAGNESIUM 2.2 mg/dL (1.6-2.3)
[2024-05-12 07:15] VITALS: BP 129/69
[2024-05-12] MEDS ORDERED: DEXTROSE 250 ML IV PRN (07:25)
[2024-05-12] MEDS ORDERED: LEVOTHYROXINE SODIUM 50 MCG/TAB PO SCH (09:00)
[2024-05-12] MEDS ORDERED: INSULIN LISPRO 100 UNITS/ML ML SC SCH (11:00)
[2024-05-12 11:28] VITALS: BP 125/69
== END 2024-05-12 13:40 | disposition home or self-care (01) ==
LOC: ED 12:33 → MS2 14:21
PROVIDERS: Family Medicine; ADMIT Internal Medicine; ATTEND Internal Medicine
DX: R07.9 Chest pain, unspecified (principal); F14.288 Cocaine dependence with other cocaine-induced disorder; I10 Essential (primary) hypertension; E11.40 Type 2 diabetes mellitus with diabetic neuropathy, unspecified; J44.9 Chronic obstructive pulmonary disease, unspecified; F41.9 Anxiety disorder, unspecified; F31.9 Bipolar disorder, unspecified; F17.210 Nicotine dependence, cigarettes, uncomplicated; I25.10 Atherosclerotic heart disease of native coronary artery without angina pectoris; I25.2 Old myocardial infarction; Z79.4 Long term (current) use of insulin; Z91.51 Personal history of suicidal behavior
CPT/HCPCS: G0378; J1650; J2060